=== PATIENT | female | born 1990 | race Caucasian/White ===

== ENCOUNTER → 2020-05-06 02:39 | Outpatient (CLI) | payer OTHER, SELFPAY ==
[2020-05-06 20:23] LABS: SARS-CoV-2 RNA PCR Negative
== END ==
PROVIDERS: PCP Nurse Practitioner Family; Visit Provider Internal Medicine Gastroenterology
DX: Z01.812 Encounter for preprocedural laboratory examination (principal); Z20.822 Contact with and (suspected) exposure to COVID-19
CPT/HCPCS: C9803; U0003; U0005

== ENCOUNTER 2020-05-09 01:47 | Day surgery (SDC) | payer OTHER, SELFPAY ==
[2020-04-25 10:07] VITALS: BMI 20.1
[2020-05-09 09:33] VITALS: BP 99/63; PULSE 95; RESP 16; TEMP 36.8; O2SAT 100
--- NOTE | 2020-05-09 09:40 | P.PNAN_ITS ---
Anes - Initial Pre Proc Eval Procedure: Operation Date: 05/09/20 10:45 Proposed Procedures p Esophagogastroduodenoscopy & Colonoscopy - Randall Ryan MD Date/Time: 05/09/20 09:40 Surgeon: Randall Ryan MD Pre Op Diagnosis: N&V, Weight Loss, Diarrhea Patient Data Age: 30 Gender: F Height: 5 ft 8 in Weight: 59.2 kg Last Vital Signs Temp 36.8 C 05/09/20 09:33 Pulse 95 05/09/20 09:33 Resp 16 05/09/20 09:33 BP 99/63 L 05/09/20 09:33 Pulse Ox 100 05/09/20 09:33 Allergies Allergy/AdvReac Type Severity Reaction Status Date / Time Sulfa (Sulfonamide Allergy Hives Verified 05/09/20 09:32 Antibiotics) Home Medications Medication Instructions Recorded Confirmed Type cholecalciferol (vitamin D3) 50 50 mcg PO DAILY 04/21/20 04/25/20 History mcg (2,000 unit) tablet dicyclomine 20 mg tablet 20 mg PO QID 04/21/20 04/25/20 History propranolol 40 mg tablet 40 mg PO Q12H 04/21/20 04/25/20 History sumatriptan succinate 50 mg tablet 50 mg PO PRN 04/21/20 04/25/20 History topiramate 200 mg tablet 200 mg PO BID tablet 04/21/20 04/25/20 History trazodone 100 mg tablet 100 mg PO QHS PRN 04/21/20 04/25/20 History Patient hx anesthesia problems: none Family hx anesthesia problems: none [facility] Past Medical History Medical History Diarrhea Nausea and vomiting Weight loss Social History Social History Smoking packs per day: 0.5 Smoking cigarettes per day: 10.0 Years smoked: 15 Smoking pack-years: 7.50 Smoking status: Current every day smoker Tobacco type: cigarettes Alcohol intake: never Substance use: current Substance use type: marijuana Other substance usage details: daily Living arrangements: with family Spiritual care concerns: No Anes - Eval Final PreProcedure Day of Procedure 03/30/21 09:40 Patient weight: normal Heart: regular rate and rhythm Lungs: decreased breath sounds Airway: Mallampati scale class II Neurological: alert and oriented Last oral intake: >/= 8 hours ASA classification: III Emergent: no Anesthetic plan: proceed Anesthesia type and monitoring: general GIVS and standard monitoring Informed Consent: The patient's anesthetic plan and its attendant risks and benefits were discussed with the patient/family/POA. Questions were solicited and answers provided to the satisfaction of the patient/family/POA.
[2020-05-09] MEDS: LACTATED RINGERS 1,000 ML 150 ML IV CONT (09:48)
--- NOTE | 2020-05-09 10:28 | PM.HPGS ---
History of Present Illness History of Present Illness Consent: Risks, benefits, and alternatives have been discussed and questions answered. Patient agrees to proceed with procedure. Chief complaint: N&V, Weight Loss, Diarrhea Narrative: Dionna Casanova is a 30 year old female who was had severe diarrhea. This began almost 1 year ago. Trials of therapy had minimal effect on her symptoms. She has diffuse nonlocalizing abdominal pain, often worse before a bowel movement. She has lost 40 lb in the past several months Review of Systems Review of Systems: All systems reviewed & are unremarkable except as noted in HPI and below PMFSH Past Medical History Medical History Diarrhea Nausea and vomiting Weight loss Social History Social History Smoking packs per day: 0.5 Smoking cigarettes per day: 10.0 Years smoked: 15 Smoking pack-years: 7.50 Smoking status: Current every day smoker Tobacco type: cigarettes Alcohol intake: never Substance use: current Substance use type: marijuana Other substance usage details: daily Living arrangements: with family Spiritual care concerns: No Meds Home Medications and Allergies Home Medications Medication Instructions Recorded Confirmed Type cholecalciferol (vitamin D3) 50 50 mcg PO DAILY 04/21/20 05/09/20 History mcg (2,000 unit) tablet dicyclomine 20 mg tablet 20 mg PO QID 04/21/20 05/09/20 History propranolol 40 mg tablet 40 mg PO Q12H 04/21/20 05/09/20 History sumatriptan succinate 50 mg tablet 50 mg PO PRN 04/21/20 05/09/20 History topiramate 200 mg tablet 200 mg PO BID tablet 04/21/20 05/09/20 History trazodone 100 mg tablet 100 mg PO QHS PRN 04/21/20 05/09/20 History Allergies Allergy/AdvReac Type Severity Reaction Status Date / Time Sulfa (Sulfonamide Allergy Hives Verified 05/09/20 09:32 Antibiotics) Vital Signs Vital Signs - 24 hr 05/09/20 09:33 Temperature 36.8 C Pulse Rate 95 Respiratory Rate 16 Blood Pressure 99/63 L Pulse Oximetry 100 Exam Const: General: alert Orientation/consciousness: patient oriented x3 Resp: Auscultation: clear to auscultation bilaterally Cardio: Rhythm: regular rhythm GI: GI Palp: Yes Soft to palpation and No Tenderness to palpation present (GI) Neuro: General: patient oriented x3 Assessment and Plan Assessment and plan (1) Diarrhea: Code(s): R19.7 - Diarrhea, unspecified Status: Acute Assessment and Plan: Colonoscopy with possible biopsy or polypectomy or cautery or injection of substances. (2) Weight loss: Code(s): R63.4 - Abnormal weight loss Status: Acute Assessment and Plan: EGD with possible biopsy or dilatation or cautery.
[2020-05-09] MEDS: SIMETHICONE ORAL SUSPENSION 20 MG/0.3 ML 30 ML BOTTLE 0.6 ML IRRIGATION (11:07)
[2020-05-09 11:18] VITALS: BP 98/64; PULSE 100; RESP 28; O2SAT 98
[2020-05-09 11:28] VITALS: BP 103/64; PULSE 73; RESP 18; O2SAT 98
[2020-05-09 11:38] VITALS: BP 109/64; PULSE 79; RESP 18; O2SAT 98
[2020-05-09 11:48] VITALS: BP 106/72; PULSE 72; RESP 18; O2SAT 98
== END 2020-05-09 12:06 | disposition home or self-care (01) ==
PROVIDERS: PCP Nurse Practitioner Family; Visit Provider Internal Medicine Gastroenterology
PROC: 0DJ08ZZ Inspection of Upper Intestinal Tract, Via Natural or Artificial Opening Endoscopic (ICD-10-PCS; CPT 43235; principal; 2020-05-09 10:45)
DX: K59.1 Functional diarrhea (principal); D12.2 Benign neoplasm of ascending colon; K44.9 Diaphragmatic hernia without obstruction or gangrene; K29.70 Gastritis, unspecified, without bleeding; R63.4 Abnormal weight loss; Z68.1 Body mass index [BMI] 19.9 or less, adult; R11.2 Nausea with vomiting, unspecified; F17.210 Nicotine dependence, cigarettes, uncomplicated; F12.90 Cannabis use, unspecified, uncomplicated
CPT/HCPCS: 45385; 45380; 43239; 87081; 88305; J2704; J7120

== ENCOUNTER 2020-06-15 07:05 | Outpatient (CLI) | payer OTHER, SELFPAY ==
--- NOTE | ~2020-06-15 | CT_ITS ---
EXAMINATION: CT abdomen pelvis w con INDICATION: Abnormal weight loss TECHNIQUE: Computed tomographic images of the abdomen and pelvis were obtained after the administrati on of 100 cc of Omnipaque 350 intravenous contrast. The dose-length product (DLP) was 219.02 mGy-cm. Automated exposure control and iterative reconstruction technique were employed. COMPARISON: None available FINDINGS: Minimal dependent atelectasis is present in the lung bases. The heart size is normal. Bilat eral breast implants are noted. The liver, spleen, pancreas, gallbladder, and adrenal glands are norm al. There is an 8 mm cyst of the left kidney. The right kidney is normal. No pathologically enlarged abdominal or pelvic lymph nodes are identified. There is no free intraperitoneal gas or evidence of b owel obstruction. IMPRESSION: 1. No CT correlate for the patient's symptoms. Reviewed, dictated and finalized at location A.
== END 2020-06-15 07:06 | disposition home or self-care (01) ==
PROVIDERS: PCP Nurse Practitioner Family; Visit Provider Internal Medicine Gastroenterology
DX: R63.4 Abnormal weight loss (principal)
CPT/HCPCS: 74177; Q9967

== ENCOUNTER → 2020-10-25 09:30 | Outpatient (CLI) | payer OTHER, SELFPAY ==
[2020-10-25 22:41] LABS: SARS-CoV-2 RNA PCR Negative
== END ==
PROVIDERS: PCP Nurse Practitioner Family; Visit Provider Nurse Practitioner Family
DX: Z20.822 Contact with and (suspected) exposure to COVID-19 (principal)
CPT/HCPCS: C9803; U0003; U0005

== ENCOUNTER 2022-02-25 10:21 | Outpatient (CLI) | payer OTHER, SELFPAY ==
--- NOTE | 2022-02-25 10:27 | ECG_ITS ---
Measurements Intervals [place] Rate: 68 P: 11 [place]: 142 QRS: 78 QRSD: 88 T: 64 QT: 363 QTc: 387 Interpretive Statements SINUS RHYTHM BASELINE ARTIFACT- I, III, AVL NORMAL ECG NO PREVIOUS ECG AVAILABLE FOR COMPARISON Electronically Signed On 02-25-2022 10:37:56 DISTRIBUTION COLLECTION OPERATOR by Gurjit Mason D.O.
== END 2022-02-25 10:22 | disposition home or self-care (01) ==
LOC: ANHSURGERY 10:24
PROVIDERS: PCP Nurse Practitioner Family; Visit Provider Surgery Plastic and Reconstructive Surgery
DX: Z01.810 Encounter for preprocedural cardiovascular examination (principal); R00.0 Tachycardia, unspecified; Z72.0 Tobacco use
CPT/HCPCS: 93005

== ENCOUNTER 2022-03-05 00:08 | Day surgery (SDC) | payer OTHER, SELFPAY ==
[2022-02-21 09:48] VITALS: BMI 21.2
--- NOTE | 2022-02-21 10:09 | SUR.PREOP ---
Report to the Outpatient Waiting Room, entrance under the green pavilion located off [facility], at time 0600 on date 03/05/2022. Planned Procedure Time: 0730. Time changes happen often and if your time is changed the preop area will call you the afternoon before. - You and your visitor will be asked to self-screen and do not enter if you have any COVID symptoms. - Only one visitor is requested with a max of two and NO children visitors are allowed at this time. - The patient visitor may be requested to leave or wait in car when not with patient due to distancing restrictions. - A mask is required within the hospital. Patients may have clear liquids (water, carbonated beverages, clear teas, apple juice) until 3 hours prior to surgery with a maximum of 20 ounces (0430). - No food from midnight until time of surgery - Infants may have breast milk until 4 hours before surgery, infant formula 6 hours prior to surgery. - Children will be allowed to drink immediately following surgery. If applicable, please bring a bottle or sippy cup to assist with drinking. Juice, water, soda, and popsicles are readily available. For infants on formula, please bring formula the day of surgery. Pacifiers are allowed. Take the following medications with a SIP of water the morning of surgery: Bentyl as needed, Imitrex as needed Medications to discontinue per physician N/A Please no make-up, nail czech, hairspray, perfume, deodorant, or body powder the day of surgery. No jewelry (including any body piercings) or valuables the day of surgery, leave them at home. Please take a shower or bath the night before, or the morning of, surgery with an antibacterial soap. Wear comfortable, loose fitting clothing. Children are encouraged to wear pajamas. - Jewelry must be removed prior to entering the operating room. Rings and piercings that are not removed may be cut off. - The hospital will not accept responsibility for valuables. - Please leave all valuables, including medications, at home the day of surgery. If you are going home after surgery, a licensed regional driver must drive you home. - NO public transportation without another adult if you receive anesthesia. - We recommend that an adult stay with you for 24 hours following discharge. - We also recommend that you do not drive, make important decision, drink alcoholic beverages, or take any drugs that were not prescribed by your health care provider for at least 24 hours after your discharge time. For Pediatric surgeries, we recommend two adults accompany the child home. Follow any additional instructions given to you from your surgeon. If you or anyone in your household have experienced Covid symptoms in the past week, please notify your surgeon or the nurse liaison at the phone number below for possible testing. Telephone instructions given to patient and asked if any additional questions and then verbalized understanding. Patient advised to call surgeon office or pre surgery nurse liaison [phone] if any additional questions.
[2022-03-05] VITALS (10 sets, daily range): BP systolic 103–135; BP diastolic 58–88; PULSE 65–120; RESP 12–17; TEMP 36.3–37.6; O2SAT 94–100
[2022-03-05] MEDS: LACTATED RINGERS 1,000 ML 30 ML IV CONT ×2 (06:30→11:08)
[2022-03-05 06:36] LABS: Urine Cotinine NEGATIVE
--- NOTE | 2022-03-05 06:40 | P.OP_ITS ---
Procedure Note - Detailed Date of Procedure 03/05/22 Pre-op Diagnosis Skin Laxity Post-op Diagnosis Same Procedure Performed Progressive tension abdominoplasty Surgeon Jason Marquez MD Anesthesia General Findings Tissue removed: 801 grams Description of Procedure They are here today for abdominoplasty. Previously and again today the risks, benefits, alternatives were discussed in extensive detail. I wanted them to be very realistic about the risks involved as well as expectations. We discussed aftercare and what to monitor for. I was very upfront about the risks of wound breakdown leading to loss of skin, open wounds, and need for additional proce dures with permanent abdominal deformity. We discussed DVT/PE risks and management. Made sure answered all of their questions to their satisfaction today and consent was obtained. They were marked in the preoperative holding area with their verification. The patient was taken to the operating room placed supine on the operating table. Anesthesia was provided by anesthesiology. A Brock catheter was started. They were prepped and draped in a standard sterile fashion. A surgical time-out was taken. I placed the patient in a flexed position to verify the upper and lower markings would reach. I then placed supine. A thorough abdominal examination was completed. Stab incisions were made and tumescent solution infiltrated. A 5mm liposuction basket cannula was utilized to provide discontinuous undermining. A 10 blade was used to make the upper incision. I continued dissection down to the level of fascia. Elevated just what was necessary for repair of the diastasis. I then again flexed the bed to verify the upper skin flap would reach the lower markings without tension. Once verified I placed her supine once again and a 10 blade used to make the lower incision. I elevated up to level the umbilicus and left the umbilicus intact on a well-vascularized stalk. The intervening tissue was removed. A 2 mm blunt cannula with 0.5% bupivicaine was injected deep to the fascia bilaterally. I plicated the diastasis recti using 0 PDO stratafix barbed suture. This was in 2 separate layers using 2 separate sutures as well. I also advanced the oblique musclesi using 0 PDO stratafix barbed suture. I repaired around the umbilicus leaving plenty of room for well-vascularized stalk of the umbilicus with 2-0 PDS. I also repaired lateral to the rectus using two layers of 0 PDO stratafix. The patient was flexed and starting from superior to inferior began plication using 2-0 Vicryl to obliterate all space in a standard progressive tension fashion. At the umbilicus I marked out the location of the skin and inset this with 3-0 Monocryl and 4-0 Vicryl. I continued the remainder of the plication using 2-0 Vicryl until I reached my lower planned scar line. I trimmed any excess skin of the upper flap making sure this was a tension-free closure. Minimal suction lipectomy based on S.A.F.E. technique was completed laterally to optimize shape. Lipoaspirate 30-40cc I then approximated using a 3 point suture with 2-0 Vicryl followed by 3-0 stratafix ,running subcuticular 4-0 Monocryl, and tissue glue. Fluffs and an abdominal binder were placed. The patient was transferred to the bed in a flexed position. Awoken and taken to the PACU without difficulty. All instrument and sponge counts were correct at the end of the case. Estimated Blood Loss 75 Drains No Packing No Pathology None sent Complications No immediate complications Condition Stable Disposition PACU
--- NOTE | 2022-03-05 06:40 | WPDHPUPDATE1 ---
History and Physical Update Update Date/Time: 03/05/22 06:40 History and Physical has been reviewed, including an updated exam of the patient. There are NO changes in the patient's condition. Risks, benefits, and alternatives have been discussed and questions answered. Patient agrees to proceed with procedure.
--- NOTE | 2022-03-05 07:33 | WPDANESEPPF ---
Anes - Initial Pre Proc Eval Procedure: Operation Date: 03/05/22 08:15 Proposed Procedures p Abdominoplasty - Jason Marquez MD Date/Time: 03/05/22 07:33 Surgeon: Jason Marquez MD Pre Op Diagnosis: Skin Laxity Patient Data Age: 32 Gender: F Height: 1.7 m Weight: 61.36 kg Allergies Allergy/AdvReac Type Severity Reaction Status Date / Time Sulfa (Sulfonamide Allergy Unknown Hives Verified 03/05/22 07:28 Antibiotics) Home Medications Medication Instructions Recorded Confirmed Type dicyclomine 20 mg tablet 20 mg PO QID PRN IBS symptoms 04/21/20 03/05/22 History sumatriptan succinate 50 mg tablet 50 mg PO PRN lico 04/21/20 03/05/22 History (Imitrex) topiramate 200 mg tablet (Topamax) 200 mg PO DAILY 04/21/20 03/05/22 History trazodone 100 mg tablet 100 mg PO QHS PRN Sleep 04/21/20 03/05/22 History zolpidem [Ambien] See Rx Instructions .Route .COMPLEX 10/08/21 03/05/22 History erenumab-aooe 70 mg/mL See Rx Instructions .Route .COMPLEX 02/21/22 03/05/22 History subcutaneous auto-injector (Aimovig Autoinjector) Laboratory Tests 03/05/22 06:15 Cotinine Negative Patient hx anesthesia problems: none Family hx anesthesia problems: none Results Review: All pre-operative results and documents have been reviewed as part of the pre-operative evaluation. [facility] Past Medical History Medical History (Updated 10/08/21 @ 11:49 by Paige Guzman) Diarrhea Nausea and vomiting Weight loss Surgical History Surgical History (Updated 10/08/21 @ 10:51 by Paige Guzman) Hx of total knee replacement Family History Family History (Updated 10/08/21 @ 10:52 by Paige Gumzan) Father Heart attack Lung cancer Diabetes mellitus Mother Arthritis, rheumatoid Diabetes mellitus DVT (deep venous thrombosis) Social History Social History (Updated 10/08/21 @ 10:53 by Paige Guzman) Smoking packs per day: 1.5 Smoking cigarettes per day: 30.0 Years smoked: 15 Smoking pack-years: 22.50 Smoking status: Former smoker Tobacco type: cigarettes Smoking end date: 01/19/22 Alcohol intake: current Drinks per week: 2 Substance use: current Substance use type: marijuana Other substance usage details: daily Last use: 02/20/2022 Living arrangements: with family Spiritual care concerns: No Anes - Eval Final PreProcedure Day of Procedure 03/05/22 07:33 Patient weight: normal Heart: regular rate and rhythm Lungs: clear to auscultation Airway: Mallampati scale class II Neurological: alert and oriented Last oral intake: >/= 8 hours ASA classification: II Emergent: no Anesthetic plan: proceed Anesthesia type and monitoring: general ETT and standard monitoring Results Review: All pre-operative results and documents have been reviewed as part of the pre-operative evaluation. Informed Consent: The patient's anesthetic plan and its attendant risks and benefits were discussed with the patient/family/POA. Questions were solicited and answers provided to the satisfaction of the patient/family/POA.
[2022-03-05] MEDS: TRANEXAMIC ACID 1,000MG/ISO100 1,000 MG/100 ML BAG 200 MG IVPB (08:25)
[2022-03-05] MEDS: BUPIVACAINE/EPINEPHRINE 0.5% 30 ML VIAL 60 ML INFILTRATE (08:27)
[2022-03-05] MEDS: LACTATED RINGERS IRRIG 1,000 ML, LIDOCAINE HCL 1% LOCAL INJ 50 ML, EPINEPHrine HCL INJ ... INFILTRATE (08:27)
[2022-03-05] MEDS: ceFAZolin 2 GM/D5W 50 ML 2 GM/50 ML BAG IVPB (08:35)
--- NOTE | 2022-03-05 11:23 | SUR.PHASEI ---
1123: Simple mask removed.
[2022-03-05] MEDS: fentaNYL CITRATE INJ (*CRX) 100 MCG/2 ML VIAL 25 MCG IV PUSH ×8 (11:29→12:31)
[2022-03-05] MEDS: KETOROLAC 15 MG/ML VIAL (*BKC) IV PUSH ×2 (13:12→23:08)
[2022-03-05] MEDS: LACTATED RINGERS 1,000 ML 125 ML IV CONT (13:12)
[2022-03-05] MEDS: carisoprodoL (*CRX) 350 MG TABLET PO ×3 (13:12→23:00)
--- NOTE | 2022-03-05 13:27 | OBPPTRN ---
1234 Patient transferred to post room #286 via bed. Support person present. Oriented to unit, room, information board, admission packet and security measures. Patient verbalizes understanding.
[2022-03-05] MEDS: ENOXAPARIN 40 MG/0.4 ML SYRINGE SUB-Q (18:40)
[2022-03-05] MEDS: oxyCODONE/ACETAMINOPHEN (*CRX) 5-325 MG TABLET PO ×2 (19:45→23:00)
[2022-03-05] MEDS: TOPIRAMATE 100 MG TABLET 200 MG PO (21:05)
[2022-03-05] MEDS: DOCUSATE SODIUM 100 MG CAPSULE PO (21:05)
[2022-03-06] MEDS: oxyCODONE/ACETAMINOPHEN (*CRX) 5-325 MG TABLET PO ×2 (02:47→05:48)
[2022-03-06 05:11] VITALS: BP 122/76; PULSE 67; RESP 16; TEMP 36.9; O2SAT 100
[2022-03-06] MEDS: carisoprodoL (*CRX) 350 MG TABLET PO (05:48)
[2022-03-06] MEDS: KETOROLAC 15 MG/ML VIAL (*BKC) IV PUSH (05:48)
--- NOTE | 2022-03-06 07:21 | WPDPN ---
Progress Note: A&P Assessment and Plan (1) Skin laxity: Code(s): L57.4 - Cutis laxa senilis Status: Acute Assessment and Plan: She is doing very well after progressive tension abdominoplasty. Will discharge home. Follow-up. She has a full list of instructions. They understand what monitor for. We discussed what is an emergency and when to proceed to the ER/dial 911. Call with any other questions or concerns. They voiced a clear understanding. I will see her back. (2) Nicotine use: Code(s): Z72.0 - Tobacco use Status: Acute Assessment and Plan: She understands the critical importance of no nicotine use. Subjective Date/time seen: 03/06/22 07:21 Interval history: Doing very well after progressive tension abdominoplasty. Ambulating. Pain controlled. No fevers or chills. No chest pain. No calf tenderness. Review of Systems Review of Systems: All systems reviewed & are unremarkable except as noted in HPI and below Exam Narrative: Alert oriented no obvious distress Respiratory unlabored Abdomen soft. No signs of infection. No hematoma. No seroma. Good color and capillary refill. No calf tenderness. Negative Homans. Objective Data Vital Signs Vital Signs: Vital Signs - 24 hr 03/05/22 11:08 03/05/22 11:20 03/05/22 11:35 Temperature 37.1 C Pulse Rate 120 H 95 87 Respiratory Rate 14 13 12 Blood Pressure 135/85 125/82 122/84 Pulse Oximetry 100 100 94 Oxygen Delivery Simple Face Mask Simple Face Mask Room Air Oxygen Flow Rate 6 6 03/05/22 11:50 03/05/22 12:05 03/05/22 12:20 Temperature Pulse Rate 98 92 83 Respiratory Rate 17 15 13 Blood Pressure 122/79 124/88 119/81 Pulse Oximetry 98 96 96 Oxygen Delivery Room Air Room Air Room Air Oxygen Flow Rate 03/05/22 16:53 03/05/22 18:40 03/05/22 12:34 Temperature 37.6 C 37.0 C Pulse Rate 71 81 Respiratory Rate 16 16 Blood Pressure 103/64 108/66 Pulse Oximetry 100 Oxygen Delivery Room Air Oxygen Flow Rate 03/05/22 23:00 03/06/22 05:11 Temperature 36.3 C L 36.9 C Pulse Rate 65 67 Respiratory Rate 16 16 Blood Pressure 111/58 L 122/76 Pulse Oximetry 100 100 Oxygen Delivery Oxygen Flow Rate Intake/Output Intake/Output: Intake & Output 03/03/22 03/04/22 03/05/22 03/06/22 23:59 23:59 23:59 23:59 Intake Total 4036 700 Output Total 4115 1375 Balance -79 -675 Meds/Results Medications: Active Medications Generic Name Dose Route Start Last Admin Trade Name Freq PRN Reason Stop Dose Admin Carisoprodol 350 mg 03/05/22 12:00 03/06/22 05:48 Carisoprodol (*Crx) 350 Mg Tablet PO 350 mg Q6HR JOSY Administration Diazepam 5 mg 03/05/22 11:05 Diazepam (*Crx) 5 Mg Tablet PO TID PRN Anxiety Dicyclomine HCl 20 mg 03/05/22 12:32 Dicyclomine Hcl 10 Mg Capsule PO QID PRN IBS symptoms Docusate Sodium 100 mg 03/05/22 21:00 03/05/22 21:05 Docusate Sodium 100 Mg Capsule PO 100 mg Q12HR [facility] Administration Enoxaparin Sodium 40 mg 03/05/22 18:00 03/05/22 18:40 Enoxaparin 40 Mg/0.4 Ml Syringe SUB-Q 40 mg DAILY@1800 [facility] Administration Ketorolac Tromethamine 15 mg 03/05/22 11:05 03/06/22 05:48 Ketorolac 15 Mg/Ml Vial (*Bkc) IV PUSH 15 mg Q6H PRN Administration Pain Rated 4-6 Morphine Sulfate 2 mg 03/05/22 11:05 Morphine Sulfate (*Crx) 2 Mg/Ml Inj IV PUSH Q2H PRN SEVERE PAIN Ondansetron HCl 4 mg 03/05/22 11:05 Ondansetron Inj 4 Mg/2 Ml Vial IV PUSH Q6H PRN Nausea Oxycodone/Acetaminophen 1 - 2 tablet 03/05/22 11:05 03/06/22 05:48 Oxycodone/Acetaminophen (*Crx) 5-325 Mg Tablet PO 1 tablet Q6H PRN Administration SEVERE PAIN Sumatriptan Succinate 50 mg 03/05/22 12:32 Sumatriptan Succinate 25 Mg Tablet PO PRN PRN Migraine Headache Topiramate 200 mg 03/05/22 21:00 03/05/22 21:05 Topiramate 100 Mg Tablet PO 200 mg HS S
--- NOTE | 2022-03-06 07:24 | P.DS_ITS ---
DS: Admitting Diagnosis Discharge Date 03/06/2022 Admitting Diagnosis skin laxity tobacco use DS: Discharge Diagnosis Discharge Diagnosis (1) Skin laxity: Code(s): L57.4 - Cutis laxa senilis Status: Acute (2) Nicotine use: Code(s): Z72.0 - Tobacco use Status: Acute DS: Summary Hospital Course Hospital Course: She underwent progressive tension abdominoplasty. Postoperatively has done well. Pain controlled. Ambulating. Tolerating diet. Will discharge home. Time spent discussing smoking cessation with patient: more than 10 minutes Time Spent with Patient Time attestation: Total time spent providing and/or coordinating discharge services: Exam Narrative: Alert oriented no obvious distress Respiratory unlabored Abdomen soft. No signs of infection. No hematoma. No seroma. Good color and capillary refill. No calf tenderness. Negative Homans. Discharge Plan Discharge Patient Disposition: Home, Self-Care Discharge Instructions: POST OPERATIVE DISCHARGE INSTRUCTIONS JASON MARQUEZ M.D. LOCATED [facility]IN [facility] [address] [place] [address] * No driving for 24 hours after anesthesia and while you are taking pain medication. * Take all prescribed medication as directed * Diet as tolerated. * No lifting or activity that raises blood pressure for 48 hours. * Regular walking / ambulation. * May shower 24 hours after surgery. Once you shower do not take pain medication before showering as the combination of medication and heat may cause you to feel dizzy or pass out. * No pools or tubs for 2 weeks. * Slowly stand up straight as tolerated. * No straining or lifting more than 20 pounds. * If no bowel movement within 24 hours may use laxative. * Call with any questions or concerns. * Dressing Care: Continue abdominal binder / foam 23 hours per day. If you have any questions or concerns, please call the office . If it is after hours you will be directed to the formulation scientist exchange. Shortness of breath, chest pain, or other medical emergency dial 911 / proceed to the Emergency Room. Stand Alone Forms: General Discharge Instructions Follow-up/Referrals: Jason Marquez MD [Physician] - 1 Week Discharge Medications: Continued topiramate [Topamax] 200 mg tablet 200 mg PO DAILY Rx Instructions: Take one tablet at HS. trazodone 100 mg tablet 100 mg PO QHS PRN (Reason: Sleep) Rx Instructions: Patient takes 2 tablets at HS. sumatriptan succinate [Imitrex] 50 mg tablet 50 mg PO PRN dicyclomine 20 mg tablet 20 mg PO QID PRN (Reason: IBS symptoms) zolpidem [Ambien] See Rx Instructions .ROUTE .COMPLEX Rx Instructions: Takes 10MG tablet PRN at HS. Aimovig Autoinjector 70 mg/mL auto-injector See Rx Instructions .ROUTE .COMPLEX Rx Instructions: 1 injection every month on the third.
[2022-03-06 07:30] VITALS: BP 107/65; PULSE 84; RESP 16; TEMP 37.3; O2SAT 100
--- NOTE | 2022-03-06 08:02 | WPDANESPN ---
Anes - Prog Note Post-Op Date/Time: 03/06/22 08:02 Cardiovascular status: normal Respiratory status: normal Airway patency: baseline Mental status: baseline Post-Op hydration status: normal Vital Signs: Last Vital Signs Temp 98.4 F 03/06/22 05:11 Pulse 67 03/06/22 05:11 Resp 16 03/06/22 05:11 BP 122/76 03/06/22 05:11 Pulse Ox 100 03/06/22 05:11 O2 Del Method Room Air 03/05/22 12:34 O2 Flow Rate 6 03/05/22 11:20 Pain Score (VAS): 7-8 I/O: Intake & Output 03/05/22 03/06/22 03/06/22 23:59 07:59 15:59 Intake Total 2150 700 Output Total 8509 7012 Balance -3575 -293 Post-procedural complaints: none Patient Feedback: Patient satisfied with anesthetic care.
== END 2022-03-06 08:16 | disposition home or self-care (01) ==
LOC: ANHSURGERY 12:05 → ANHOB2 12:42
PROVIDERS: PCP Nurse Practitioner Family; Visit Provider Surgery Plastic and Reconstructive Surgery
PROC: (CPT 15830; principal; 2022-03-05 08:15)
DX: Z41.1 Encounter for cosmetic surgery (principal); L57.4 Cutis laxa senilis; Z87.891 Personal history of nicotine dependence; F12.90 Cannabis use, unspecified, uncomplicated
CPT/HCPCS: 15830; 15847; 80307; 99199; A9270; J0171; J0690; J1100; J1170; J1650; J1885; J2250; J2405; J2704; J3010; J7120

== ENCOUNTER 2022-07-16 16:54 | Emergency (ER) | payer OTHER, SELFPAY ==
--- NOTE | 2022-07-16 16:59 | ED.SKABFB ---
HPI - Skin/Abscess/Foreign Bdy General Chief complaint: Skin/Abscess/Foreign Body Stated complaint: abscess Time Seen by Provider: 07/16/22 17:00 Source: patient Mode of arrival: ambulatory Limitations: no limitations History of Present Illness HPI narrative: patient is a 32-year-old female that presents with wound to right labia majora next to vaginal opening. Patient states she went camping this weekend and noticed a bump yesterday. significant other help drain area last night, but states today it is filled again and larger than it was. Patient states the scratch next to it now appears white and Pussy but is not currently draining. Denies any difficulty with bowel movements. Is currently on her Menstrual cycle. Denies any fever, chills but does feel fatigued. Has not taken anything for symptoms or used any topical ointment Related Data Home Medications Medication Instructions Recorded Confirmed sumatriptan succinate 50 mg tablet 50 mg PO PRN PRN Migraine Headache 04/21/20 07/16/22 (Imitrex) topiramate 200 mg tablet (Topamax) 200 mg PO BID 04/21/20 07/16/22 trazodone 100 mg tablet 200 mg PO QHS PRN Sleep 04/21/20 07/16/22 erenumab-aooe 70 mg/mL See Rx Instructions .Route .COMPLEX 02/21/22 07/16/22 subcutaneous auto-injector (Aimovig Autoinjector) flibanserin 100 mg tablet (Addyi) 100 mg PO DAILY 07/16/22 07/16/22 zolpidem 10 mg tablet 10 mg PO DAILY 07/16/22 07/16/22 Allergies Allergy/AdvReac Type Severity Reaction Status Date / Time Sulfa (Sulfonamide AdvReac Mild Hives Verified 07/16/22 16:56 Antibiotics) Review of Systems Review of Systems: All systems reviewed & are unremarkable except as noted in HPI and below Constitutional: Constitutional: Denies body ache(s), Denies chills, Reports fatigue, Denies fever(s), Denies headache(s), Denies malaise and Denies weakness Eyes: Eyes: Denies blurry vision, Denies irritation and Denies loss of vision ENT: Denies otalgia, Denies headache(s), Denies nasal discharge, Denies sinus pain and Denies sore throat Cardiovascular: Cardiovascular: Denies chest pain, Denies irregular heart rhythm and Denies dyspnea Respiratory: Respiratory: Denies dyspnea Gastrointestinal: Gastrointestinal: Denies abdominal pain, Denies melena, Denies hematochezia, Denies diarrhea, Denies nausea and Denies vomiting Musculoskeletal: Musculoskeletal: Denies back pain, Denies myalgias and Denies arthralgias Integumentary/Breasts: Skin/Breast: Denies pruritus, Denies rash and Reports sores Neurologic: Denies headache(s), Denies loss of vision and Denies weakness Psychiatric: Psychiatric: Reports no additional psychiatric complaints Endocrine: Endocrine: Denies fatigue [facility] Past Medical History Medical History (Updated 07/16/22 @ 17:30 by Kathleen Donohue, VICKIE) Diarrhea Nausea and vomiting Weight loss Surgical History Surgical History (Updated 10/08/21 @ 10:51 by Paige Guzman) Hx of total knee replacement Family History Family History (Updated 10/08/21 @ 10:52 by Paige Guzman) Father Heart attack Lung cancer Diabetes mellitus Mother Arthritis, rheumatoid Diabetes mellitus DVT (deep venous thrombosis) Social History Social History (Updated 10/08/21 @ 10:53 by Paige Guzman) Smoking packs per day: 1.5 Smoking cigarettes per day: 30.0 Years smoked: 15 Smoking pack-years: 22.50 Smoking status: Former smoker Tobacco type: cigarettes Smoking end date: 01/19/22 Alcohol intake: current Drinks per week: 2 Substance use: current Substance use type: marijuana Other substance usage details: daily Last use: 02/20/2022 Living arrangements: with family Spiritual care concerns: No Comments At time of signature, agree with nursing past medical, surgical, social and family history. There is no relevant family history pertinent to the presenting complaint. Exam Const: General: cooperative, healthy appearing, co
[2022-07-16 17:00] VITALS: BP 127/83; PULSE 90; RESP 18; TEMP 36.8; O2SAT 100
== END 2022-07-16 18:09 | disposition home or self-care (01) ==
PROVIDERS: Emergency Provider Nurse Practitioner Family; PCP Nurse Practitioner Family
DX: N76.4 Abscess of vulva (principal); Z87.891 Personal history of nicotine dependence
CPT/HCPCS: 99213; G0463

== ENCOUNTER 2022-07-18 07:29 | Outpatient (CLI) | payer OTHER, SELFPAY ==
--- NOTE | ~2022-07-18 | MR_ITS ---
MRI of the brain Clinical History: Chronic migraine Technique: Axial and sagittal T1-weighted images were acquired. These were followed by axial T2-weigh jordon, diffusion weighted, gradient, and FLAIR images. COMPARISON: 08/06/2013 Findings: No signal abnormality seen in the brain parenchyma. No acute infarct, intracranial hemorrha ge, or mass lesion. Ventricles and subarachnoid spaces are unremarkable. Orbits are unremarkable. Paranasal sinuses and m astoid air cells are clear. Major intracranial flow voids appear intact. Sagittal midline structures are intact. IMPRESSION: No significant abnormality seen. Reviewed, dictated and finalized at location M.
== END 2022-07-18 07:30 | disposition home or self-care (01) ==
LOC: ANHIMG 07:36
PROVIDERS: PCP Nurse Practitioner Family
DX: G43.709 Chronic migraine without aura, not intractable, without status migrainosus (principal)
CPT/HCPCS: 70551

== ENCOUNTER 2022-08-05 15:26 | Outpatient (CLI) | payer OTHER, SELFPAY ==
[2022-08-05 15:42] LABS: Basophils Absolute Auto 0.1 K/mm3 (0.0-0.1); Basophils Percent Auto 0.5 % (0.2-1.2); Eosinophils Absolute Auto 0.1 K/mm3 (0-0.3); Eosinophils Percent Auto 0.9 % (0-4.4); Hematocrit 44.4 % (37.0-47.0); Hemoglobin 14.9 g/dL (12.0-15.0); Immature Granulocyte Absolute 0.04 K/mm3 (0.00-0.031); Immature Granulocyte Percent A 0.4 % (0-0.5); Lymphocytes Absolute Auto 2.26 K/mm3 (0.9-3.2); Lymphocytes Percent Auto 21.8 % (18.3-44.2); Mean Corpuscular HGB Conc 33.6 g/dl (32-36); Mean Corpuscular Hemoglobin 31.8 pg (26-34); Mean Corpuscular Volume 94.9 fl (80-100); Mean Platelet Volume 8.8 fl (7.4-10.4); Monocytes Absolute Auto 0.7 K/mm3 (0.1-0.6); Monocytes Percent Auto 6.7 % (2.6-8.5); Neutrophils Absolute Auto 7.2 K/mm3 (1.3-6.7); Neutrophils Percent Auto 69.7 % (45.5-73.1); Platelet Count Result 397 k/mm3 (150-375); Red Blood Count 4.68 M/mm3 (4.2-5.4); White Blood Count 10.4 K/mm3 (4.5-10.0)
[2022-08-05 16:46] LABS: Erythrocyte Sedimentation Rate 5 mm/hr (0-20)
[2022-08-05 17:06] LABS: Alanine Aminotransferase 18 U/L (6-35); Albumin Level 4.8 g/dL (3.5-5.1); Alkaline Phosphatase 58 U/L (38-126); Anion Gap 5 mmol/L (8-16); Aspartate Amino Transferase 37 U/L (14-36); Bilirubin,Total 0.4 mg/dL (0.2-1.3); Blood Urea Nitrogen 8 mg/dL (7-17); CRP < 0.5 mg/dL (<1.0); Calcium 9.5 mg/dL (8.4-10.2); Carbon Dioxide 26 mmol/L (22-30); Chloride 108 mmol/L (98-107); Estimated Glomerular Filt Rate > 60; Glucose 88 mg/dL (65-110); Lactate Dehydrogenase 183 U/L (120-246); Potassium 3.9 mmol/L (3.4-5.0); Sodium 139 mmol/L (137-145)
[2022-08-08 15:01] LABS: Erythropoietin (EPO) 4.3 mIU/mL (2.6-18.5)
== END 2022-08-05 15:27 | disposition home or self-care (01) ==
LOC: ANHLAB 15:28
PROVIDERS: PCP Nurse Practitioner Family; Visit Provider Internal Medicine Hematology & Oncology
DX: D72.829 Elevated white blood cell count, unspecified (principal); D75.1 Secondary polycythemia
CPT/HCPCS: 36415; 80053; 82668; 83615; 85025; 85652; 86140; 88184

== ENCOUNTER 2022-08-14 11:58 | Outpatient (CLI) | payer OTHER, SELFPAY ==
--- NOTE | 2022-08-14 | ECHO_ITS ---
Patient Info Name: Dionna Casanova Age: 32 years : 1990 Gender: Female Ht: 68 in Wt: 130 lbs BSA: 1.68 m2 HR: 87 bpm BP: 124 / 87 mmHg Heart Rhythm: Sinus Rhythm Technical Quality: Good Exam Date: 08/14/2022 12:45 PM Exam Location: [facility] Patient Status: Outpatient Admit Date: 08/14/2022 Staff Ordering Physician: JameelRakan MD Assistant Accounting Manager: Loretta Mann RDCS Attending Provider: Jameel, Rakan Reyna MD Referring Physician: Jameel GONZALEZ; Exam Type: CA echo doppler color flow Study Info Indications - mitral valve prolapse Complete two-dimensional, color flow and Doppler transthoracic echocardiogram is performed. Summary 1. Complete two-dimensional, color flow and Doppler transthoracic echocardiogram is performed. 2. Left ventricular chamber dimension is normal. 3. Left ventricular systolic function is normal, estimated at 60-65%. 4. The left ventricular diastolic function is normal. 5. E/e' 7 is not elevated. 6. There is trace tricuspid valve regurgitation. Left Ventricle E/e' 7 is not elevated. Left ventricular chamber dimension is normal. Left ventricular systolic function is normal, estimated at 60-65%. The left ventricular diastolic function is normal. Right Ventricle Right ventricular systolic function is normal and with normal TAPSE 1.8 cm. Right ventricular chamber dimension is normal. Left Atria Left atrial chamber dimension is normal. Right Atria Right atrial chamber dimension is normal. Aortic Valve The aortic valve is trileaflet. There is no aortic valve stenosis. There is no aortic valve regurgitation. Pulmonic Valve There is no pulmonic regurgitation. Mitral Valve There is no mitral valve stenosis. There is no mitral valve regurgitation. Tricuspid Valve RVSP is not calculated due to an inadequate TR jet. There is trace tricuspid valve regurgitation. Pericardium/Pleural There is no pericardial effusion. Inferior Vena Cava Normal inferior vena cava with >50% collapse upon inspiration consistent with normal right atrial pressure, 5 mmHg. Aorta The aortic root size at the sinus of Valsalva is normal. Left Ventricular Outflow Tract Name Value Normal LVOT 2D LVOT Diameter 2.0 cm LVOT Doppler LVOT Peak Gradient 3 mmHg LVOT Mean Gradient 2 mmHg LVOT VTI 15 cm LVOT VTI/AV VTI Ratio 0.8 LVOT Stroke Volume 49 ml LVOT CO 3.8 l/min LVOT CI 2.3 l/min/m2 Pulmonic Valve Name Value Normal RVOT Doppler RVOT Peak Gradient 2 mmHg PV Doppler PV Peak Gradient 5 mmHg Mitral Valve Name
--- NOTE | 2022-08-14 12:45 | PCCARD ---
Patient was called by [employer] a couple of times and could not leave a message. They also tried the doctors office on August 12 and no answer. they left a message on our phone in cardiology but was not taken off of the machine until fri. Patient arrived at the hospital and was registered and was brought to the cardiology department. I tried to explain the situation to her and her but the became upset and left but did return. the patient started crying and still wanted test so I told her that I would see what I could tried office no answer. Called [employer] [id number] and was informed that if they had the test and insurance denied they would be liable. they both agreed to go ahead with the test knowing they might be liable for the procedure cost. darek
== END 2022-08-14 11:59 | disposition home or self-care (01) ==
LOC: ANHCARD 11:59
PROVIDERS: PCP Nurse Practitioner Family; Visit Provider Internal Medicine Rheumatology
DX: I34.1 Nonrheumatic mitral (valve) prolapse (principal)
CPT/HCPCS: 93306

== ENCOUNTER 2023-01-31 14:33 | Outpatient (CLI) | payer OTHER, SELFPAY ==
--- NOTE | ~2023-01-31 | US_ITS ---
EXAMINATION: US pelvic complete w TV DATE: 01/31/2023 15:10 INDICATION: Left lower quadrant pain Comparison:No prior studies for comparison. TECHNIQUE: Multiple transabdominal and endovaginal sonographic images of the pelvis performed. FINDINGS: The uterus measures 6 x 3.3 x 3.9 cm. There is a 2 cm uterine fibroid. The endometrial comp kavita measures 3 mm. The right ovary measures 2.8 x 1.4 x 2.4 cm and the left ovary measures 2.5 x 1.5 x 2.4 cm. There ar e small follicles in each ovary. Normal doppler signal in both ovaries. There is no free fluid in the pelvis. There are no abnormal masses seen on either side. IMPRESSION: 1. Uterine fibroid measuring 2 cm. Reviewed, dictated and finalized at location A. [employer]
== END 2023-01-31 14:34 | disposition home or self-care (01) ==
PROVIDERS: PCP Nurse Practitioner Family; Visit Provider Nurse Practitioner Family
DX: R10.32 Left lower quadrant pain (principal); D25.9 Leiomyoma of uterus, unspecified
CPT/HCPCS: 76830; 76856

== ENCOUNTER 2023-05-21 08:29 | Outpatient (CLI) | payer OTHER, SELFPAY | END 2023-05-21 08:30 | disposition home or self-care (01) | LOC: ANHSURGERY 08:32 | PROVIDERS: PCP Nurse Practitioner Family; Visit Provider Obstetrics & Gynecology | DX: Z01.818 Encounter for other preprocedural examination (principal); N93.9 Abnormal uterine and vaginal bleeding, unspecified | CPT/HCPCS: 36415; 86850; 86900; 86901 ==

== ENCOUNTER 2023-05-26 00:51 | Day surgery (SDC) | payer OTHER, SELFPAY ==
[2023-05-15 10:11] VITALS: BMI 19.0
--- NOTE | 2023-05-15 10:24 | SUR.PREOP ---
Report to the Outpatient Waiting Room, entrance under the green pavilion located off [facility], at time 0600 on date 05/26/2023. Planned Procedure Time: 0730. Time changes happen often and if your time is changed the preop area will call you the afternoon before. - You and your visitor will be asked to self-screen and do not enter if you have any COVID symptoms. - A mask is optional within the hospital at this time. Patients may have clear liquids (water, carbonated beverages, clear teas, apple juice) until 3 hours prior to surgery with a maximum of 20 ounces. - No food from midnight until time of surgery Take the following medications with a SIP of water the morning of surgery: clonazepam, levetiracetam, topiramate, fludrocortisone DO NOT STOP ANY OF YOUR OTHER PRESCRIPTION MEDICATIONS PRIOR TO SURGERY ?EXCEPT THE FOLLOWING Medications to discontinue per physician Vitamins/ Supplements Date to take last dose 05/23/2023 for Vitamin and Supplements Please no make-up, nail occitan, hairspray, perfume, deodorant, or body powder the day of surgery. No jewelry (including any body piercings) or valuables the day of surgery, leave them at home. Please take a shower or bath the night before, or the morning of, surgery with an antibacterial soap. Wear comfortable, loose fitting clothing. Children are encouraged to wear pajamas. - Jewelry must be removed prior to entering the operating room. Rings and piercings that are not removed may be cut off. - The hospital will not accept responsibility for valuables. - Please leave all valuables, including medications, at home the day of surgery. If you are going home after surgery, a licensed fence post driver must drive you home. - NO public transportation without another adult if you receive anesthesia. - We recommend that an adult stay with you for 24 hours following discharge. - We also recommend that you do not drive, make important decision, drink alcoholic beverages, or take any drugs that were not prescribed by your health care provider for at least 24 hours after your discharge time. Follow any additional instructions given to you from your surgeon. If you or anyone in your household have experienced Covid symptoms in the past week, please notify your surgeon or the nurse liaison at the phone number below for possible testing. Telephone instructions given to Dionna Casanova and asked if any additional questions and then verbalized understanding. Patient advised to call surgeon office or pre surgery nurse liaison [phone] if any additional questions.
--- NOTE | 2023-05-25 19:05 | PM.IMHP ---
H&P: HPI History of Present Illness Date/Time: 05/25/23 19:05 Chief Complaint: pelvic pain and AUB Narrative: Dionna is a 33yo G0, who presents for surgery due to chronic pelvic pain and AUB. Her PCP ordered a [employer] US due to her chronic pelvic pain. A 2cm ant/fundal intramural fibroid was noted. She reports her periods are very heavy periods; has to change her pad every couple of hours; passing half dollar sized clots. She reports that during her periods, she usually does not get out of bed because of the depression and severe pains that radiate down her legs. But when she's not on her period, she still has a constant, achy/cramping pain that's constantly present. She has taken depo and other BC in the past but it severely affects her mood and she has migraines; so she cannot be on estrogen. She reports that her periods are so heavy, her neurologist thinks that she's getting hypotensive and then has seizures due to the hypotension. She does not desire children; had a vasectomy 17 years ago. She has pain with intercourse too. She reports a h/o hemorrhagic cyst with large volume hemoperitoneum and possible endometriosis. She does have a h/o IBS-D. Had a normal EMB; pap showed HPV, but colpo was negative. Review of Systems Constitutional: Constitutional: Denies chills, Denies fever(s) and Denies headache(s) Eyes: Eyes: Denies change in vision ENT: Reports dizziness and Reports headache(s) Cardiovascular: Cardiovascular: Denies chest pain and Denies dyspnea Respiratory: Respiratory: Denies cough and Denies dyspnea Gastrointestinal: Gastrointestinal: Denies abdominal pain and Denies change in stool character Genitourinary: Genitourinary: Denies abnormal menses, Reports abnormal vaginal bleeding, Reports menorrhagia, Reports dyspareunia, Reports dysmenorrhea, Reports pelvic pain, Denies vaginal discharge, Denies vaginal odor and Denies vaginal pruritus Neurologic: Denies dizziness and Denies headache(s) Psychiatric: Psychiatric: Denies anxiety and Denies depression [facility] Past Medical History Medical History (Updated 05/22/23 @ 08:09 by Grace Guillory APRN) Body aches Diarrhea Episodic migraine GERD (gastroesophageal reflux disease) History of PSVT (paroxysmal supraventricular tachycardia) IBS (irritable bowel syndrome) Insomnia Irritable bowel syndrome with constipation Nausea and vomiting Orthostatic hypertension Orthostatic intolerance POTS (postural orthostatic tachycardia syndrome) Seizures SVT (supraventricular tachycardia) Weight loss Surgical History Surgical History H/O abdominoplasty Hx of breast augmentation Hx of total knee replacement reconstruction on both knees Family History Family History Father Heart attack Lung cancer Diabetes mellitus Mother Arthritis, rheumatoid Diabetes mellitus DVT (deep venous thrombosis) Endometriosis Grandparent Cerebrovascular accident Social History Social History Smoking packs per day: 1 Smoking cigarettes per day: 20.0 Years smoked: 18 Smoking pack-years: 18.00 Smoking status: Current every day smoker Tobacco type: cigarettes Smoking end date: 01/19/22 Alcohol intake: current Drinks per week: 2 Alcohol use details: Every other week Substance use: current Substance use type: marijuana Other substance usage details: daily Last use: 02/20/2022 Do You Feel Safe in your Home?: Yes Lack of Transportation: No Lack of Food: Never True Current Housing: I Have Housing Concerned About Future Housing: No Difficulty Paying Gas/Electric Bills: No Difficulty Paying for Meds: No Currently Unemployed: No Education: Associate Degree Living arrangements: with family Occupation/Education: unemployed Gender identity (if verbalized by the patient): Female
[2023-05-26] VITALS (9 sets, daily range): BP systolic 94–113; BP diastolic 62–81; PULSE 71–94; RESP 12–16; TEMP 36.3–37.4; O2SAT 97–100; BMI 19.4
[2023-05-26] MEDS: ACETAMINOPHEN 500 MG TABLET 1000 MG PO ×3 (06:40→22:52)
[2023-05-26] MEDS: KETOROLAC 15 MG/ML VIAL (*BKC) IV PUSH (06:40)
--- NOTE | 2023-05-26 07:13 | WPDHPUPDATE1 ---
History and Physical Update Update Date/Time: 05/26/23 07:13 History and Physical has been reviewed, including an updated exam of the patient. There are NO changes in the patient's condition. Risks, benefits, and alternatives have been discussed and questions answered. Patient agrees to proceed with RA-TLH, BS, cystoscopy.
--- NOTE | 2023-05-26 07:22 | WPDANESEPPF ---
Anes - Initial Pre Proc Eval Procedure: Operation Date: 05/26/23 07:30 Proposed Procedures p Robotic Assisted Total Laparoscopic Hysterectomy with Bilateral Salpingectomy - Divina Armstrong MD Date/Time: 05/26/23 07:22 Surgeon: Divina Armstrong MD Pre Op Diagnosis: abnormal uterine bleeding Patient Data Age: 33 Gender: F Height: 1.73 m Weight: 58.05 kg Allergies Allergy/AdvReac Type Severity Reaction Status Date / Time adhesive Allergy Blister Verified 05/26/23 06:45 Sutures AdvReac Intermediate Other Verified 05/26/23 06:45 Sulfa (Sulfonamide AdvReac Mild Hives Verified 05/26/23 06:45 Antibiotics) Home Medications Medication Instructions Recorded Confirmed Type sumatriptan succinate 50 mg tablet 50 mg PO PRN PRN Migraine Headache 04/21/20 05/26/23 History (Imitrex) topiramate 200 mg tablet (Topamax) 200 mg PO BID 04/21/20 05/26/23 History erenumab-aooe 70 mg/mL See Rx Instructions .Route .COMPLEX 02/21/22 05/26/23 History subcutaneous auto-injector (Aimovig Autoinjector) baclofen 5 mg tablet 5 mg PO PRN 03/24/23 05/26/23 History clonazepam 1 mg tablet 1 mg PO PRN 03/24/23 05/26/23 History levetiracetam 1,000 mg tablet 1,000 mg PO Q12H 03/24/23 05/26/23 History (Keppra) medroxyprogesterone 10 mg tablet 10 mg PO DAILY #14 tabs 05/13/23 05/26/23 Rx (Provera) cholecalciferol (vitamin D3) 10 10 mcg PO DAILY 05/15/23 05/22/23 History mcg (400 unit) tablet (Vitamin D3) fludrocortisone 0.1 mg tablet 0.1 mg PO DAILY 05/15/23 05/26/23 History folic acid 1 mg tablet 2 mg PO DAILY 05/15/23 05/22/23 History midodrine 10 mg tablet 10 mg PO TID 05/15/23 05/26/23 History potassium 99 mg tablet 99 mg PO DAILY 05/15/23 05/26/23 History vitamin B complex (Vitamins B 1 tablet PO DAILY 05/15/23 05/22/23 History Complex tablet) trazodone 100 mg tablet 200 mg PO QHS PRN Sleep #180 tabs 05/21/23 05/26/23 Rx zolpidem 10 mg tablet 10 mg PO DAILY #90 tabs 05/21/23 05/26/23 Rx Patient hx anesthesia problems: none Family hx anesthesia problems: none Results Review: All pre-operative results and documents have been reviewed as part of the pre-operative evaluation. [facility] Past Medical History Medical History Body aches Diarrhea Episodic migraine GERD (gastroesophageal reflux disease) History of PSVT (paroxysmal supraventricular tachycardia) IBS (irritable bowel syndrome) Insomnia Irritable bowel syndrome with constipation Nausea and vomiting Orthostatic hypertension Orthostatic intolerance POTS (postural orthostatic tachycardia syndrome) Seizures SVT (supraventricular tachycardia) Weight loss Surgical History Surgical History H/O abdominoplasty Hx of breast augmentation Hx of total knee replacement reconstruction on both knees Family History Family History Father Heart attack Lung cancer Diabetes mellitus Mother Arthritis, rheumatoid Diabetes mellitus DVT (deep venous thrombosis) Endometriosis Grandparent Cerebrovascular accident Social History Social History Smoking packs per day: 1 Smoking cigarettes per day: 20.0 Years smoked: 18 Smoking pack-years: 18.00 Smoking status: Current every day smoker Tobacco type: cigarettes Smoking end date: 01/19/22 Alcohol intake: current Drinks per week: 2 Alcohol use details: Every other week Substance use: current Substance use type: marijuana Other substance usage details: daily Last use: 02/20/2022 Do You Feel Safe in your Home?: Yes Lack of Transportation: No Lack of Food: Never True Current Housing: I Have Housing Concerned About Future Housing: No Difficulty Paying Gas/Electric Bills: No Difficulty Paying for Meds: No Currently Unemployed: No Educat
[2023-05-26] MEDS: LACTATED RINGERS 1,000 ML 30 ML IV CONT ×2 (07:30→09:09)
[2023-05-26] MEDS: ceFAZolin 2 GM/D5W 50 ML 2 GM/50 ML BAG IVPB (07:30)
[2023-05-26] MEDS: metroNIDAZOLE 500 MG/ISO 100ML 500 MG/100 ML BAG 100 MG IVPB (07:40)
[2023-05-26] MEDS: LIDO 1%/EPINEPHRINE 1:100,000 20 ML VIAL 30 ML INFILTRATE (08:45)
--- NOTE | 2023-05-26 09:01 | W.PM.PROC2 ---
Procedure Note - Detailed Date of Procedure 05/26/23 Pre-op Diagnosis abnormal uterine bleeding chronic pelvic pain fibroid uterus Post-op Diagnosis Same Procedure Performed Robotic assisted total laparoscopic hysterectomy with bilateral salpingectomy with cystoscopy Surgeon Divina Armstrong MD Computer Game Program[employer] Ba Anesthesia General and Local (15cc of 1% lidocaine w/ epio) Findings Uterus sounded to 7cm; cervix 2.5cm. right fallopian tube with paratubal cyst, small amount of endometriosis noted on tubes/anterior uterus, right ovary with normal appearing cyst, left ovary normal. Normal bladder that filled without issues; bilateral ureteral efflux noted. Description of Procedure Dionna was taken to the operating room where she was placed under general anesthesia without issues. She received 2 g Ancef and 500mg Metronidazole. She was then prepped and draped in the usual sterile fashion in the dorsal lithotomy position with her legs in low Yobani stirrups, her arms tucked at her side, with a strap over her chest. A time-out was performed. My attention was turned down below where a bauman catheter was placed. A bivalve speculum was placed within the vagina. The cervix was easily identified and the anterior lip of the cervix was grasped with single-tooth tenaculum. The uterus was then sounded to 7cm. The cervix was serially dilated to allow for the TOÑITO uterine manipulator; which was placed w/o issue (6cm tip with 2.5cm cervical ring). My gloves were changed and attention was then turned to the abdomen. A 5 mm trocar was placed under direct visualization at Miguel's point without issue. Once intra-abdominal placement was confirmed, the abdomen was insufflated with carbon dioxide gas. An abdominal survey was performed and the above findings were noted. Two additional ports were placed on the right and left side and the camera port was placed suprapubically under direct visualization without issues. The 5mm port was switched out for the accessory port under direct visualization. The patient was then placed in deep Trendelenburg, with the legs slightly lowered. The robot was then docked. The instruments were placed intra-abdominally under direct visualization. I then un-scrubbed and went to the robotic console. I then started my hysterectomy on the right side. The ureter was easily identified transperitoneally and well out of the surgical field. The fallopian tube was elevated and the mesosalpinx was coagulated and transected. The round ligament was clamped, coagulated, and transected. The uterine ovarian artery was then serially clamped, coagulated, and transected with good hemostasis. The broad ligament was then dissected anteriorly and posteriorly skeletonizing the uterine artery. The bladder flap was then developed on the right side and carried around the left, anteriorly. The uterine artery was then serially clamped and coagulated. Once the vessel was adequately coagulated, it was then transected with good hemostasis. The same procedure was then performed on the left side without complications. The uterus was noted to be devascularized. The bladder flap was verified out of the surgical field and the colpotomy was started anteriorly and continued in a clockwise fashion until the uterus was released. The uterus was removed from the abdomen via the vagina without complications. The vaginal cuff had small bleeders that were made hemostatic without complications. The vaginal cuff was then reapproximated using a 0 V lock suture. The pelvis was then irrigated and suctioned free of all clots and debris. Good hemostasis was noted. All instruments were removed from the abdomen and the robot was undocked. I then scrubbed back in and verified that the cuff was intact without any defects. The Bauman catheter was then removed. The cystoscope was placed within the bladder, which filled without difficulty. Bilateral ureteral efflux was noted. The bladder was examined and
[2023-05-26] MEDS: fentaNYL CITRATE INJ (*CRX) 100 MCG/2 ML VIAL 25 MCG IV PUSH ×2 (09:55→09:58)
[2023-05-26] MEDS: DEXTROSE 5%/LACTATED RINGERS 1,000 ML 100 ML IV CONT ×2 (11:13→21:01)
[2023-05-26] MEDS: DOCUSATE SODIUM 100 MG CAPSULE PO (11:13)
[2023-05-26] MEDS: KETOROLAC 30 MG/ML VIAL (*BKC) IV PUSH ×3 (11:14→22:51)
--- NOTE | 2023-05-26 12:30 | PC.NURSE ---
This patient, Dionna Casanova, was received from PACU on 05/26/23 at 1017. Patient/family oriented to unit policies and routines
[2023-05-26] MEDS: SIMETHICONE 80 MG TAB.CHEW PO (16:38)
[2023-05-26] MEDS: TOPIRAMATE 100 MG TABLET 200 MG PO ×2 (16:46→21:15)
--- NOTE | 2023-05-26 19:24 | PM.GYNPNOP ---
DATA PROGRAMMER - A/P Assessment and plan (1) S/P laparoscopic hysterectomy: Code(s): Z90.710 - Acquired absence of both cervix and uterus Status: Acute Plan - oxy 5/10 and dilaudid ordered PRN; will give oxycodone 5mg now and verify it works well for her pain as that's been sent in to pharmacy Postoperative Procedures: Procedures Operation Date: 05/26/23 07:30 Actual Procedure Side Surgeon p Robotic Assisted Total Laparoscopic Hysterectomy with Bilateral Salpingectomy, Cystoscopy Bilateral Divina Armstrong MD Postoperative day: 1 Postoperative status: doing well Postoperative plan: routine post-op care and discharge Time Spent With Patient Time: Total time spent is greater than 50% in coordination of care (as documented) at patient's floor/unit and/or counseling patient: Time with patient: less than 15 minutes DATA PROGRAMMER- PN:Subj Post-Op Subjective Date/time seen: 05/27/23 07:24 Interval history: POD#1 Dionna reports doing well today. No issues overnight. She was not given any stronger pain meds overnight; only got Tylenol and Toradol-- pain has been ok but would like something stronger. She has tolerated regular diet. She denies any vaginal bleeding. She has voided. She has passed flatus. She has ambulated and denies any symptoms of anemia. Review of Systems Review of Systems: All systems reviewed & are unremarkable except as noted in HPI and below (HPI) Constitutional: Constitutional: Denies chills, Denies fever(s) and Denies headache(s) Eyes: Eyes: Denies change in vision ENT: Denies dizziness and Denies headache(s) Cardiovascular: Cardiovascular: Denies chest pain and Denies rapid heart rate Respiratory: Respiratory: Denies cough Genitourinary: Genitourinary: Denies abnormal vaginal bleeding Neurologic: Denies dizziness and Denies headache(s) Exam Const: General: cooperative, healthy appearing, comfortable and no acute distress Orientation/consciousness: patient oriented x3 Resp: Effort & Inspection: normal respiratory effort Auscultation: clear to auscultation bilaterally Cardio: Rate: regular rate GI: Inspection: normal to inspection and incision (4 LSC incisions c/d/i) GI Palp: Yes abdominal tenderness (appropriate) and Yes Soft to palpation Auscultation: normal bowel sounds : Other: normal bleeding on pad Skin: General skin exam: normal color Neuro: General: patient oriented x3 Psych: Appearance: grossly normal Affect: normal affect Attitude: cooperative DATA PROGRAMMER - PN: Obj Data Vital Signs Vital Signs: Vital Signs - 24 hr 05/26/23 09:09 05/26/23 09:25 05/26/23 09:40 Temperature 97.7 F Pulse Rate 90 86 87 Respiratory Rate 16 14 14 Blood Pressure 101/62 94/66 L 99/63 L Pulse Oximetry 100 100 100 Oxygen Delivery Simple Face Mask Simple Face Mask Simple Face Mask Oxygen Flow Rate 8 8 8 05/26/23 09:55 05/26/23 10:10 05/26/23 10:20 Temperature 97.3 F L Pulse Rate 94 81 78 Respiratory Rate 14 12 16 Blood Pressure 112/77 113/73 107/72 Pulse Oximetry 97 99 97 Oxygen Delivery Room Air Room Air Oxygen Flow Rate 05/26/23 15:45 Temperature 97.9 F Pulse Rate 79 Respiratory Rate 16 Blood Pressure 96/81 L Pulse Oximetry 99 Oxygen Delivery Oxygen Flow Rate Intake/Output Intake/Output: Intake & Output 05/23/23 05/24/23 05/25/23 05/26/23 23:59 23:59 23:59 23:59 Intake Total 1740 Output Total 200 Balance 1540 Meds/Results Medications: Active Medications Generic Name Dose Route Start Last Admin Trade Name Freq PRN Reason Stop Dose Admin Acetaminophen 1,000 mg 05/26/23 12:00 05/26/23 16:46 Acetaminophen 500 Mg Tablet PO 1,000 mg Q6H JOSY Administration Baclofen 5 mg 05/26/23 11:25 Baclofen 5 Mg Tablet PO Q12H PRN Spasms Clonazepam 1 mg 05/26/23 11:25 Clonazepam (*Crx) 0.5 Mg Tablet PO Q8HR PRN Anxiety Docusate Sodium 100 mg 05/26/23 10:15 05/26/23 11:13 Docusate Sodium 10
[2023-05-26] MEDS: levETIRAcetam 500 MG TABLET 1000 MG PO (21:15)
[2023-05-26] MEDS: ZOLPIDEM TARTRATE (*CRX) 5 MG TABLET 10 MG PO (21:15)
[2023-05-27 03:30] VITALS: BP 97/61; PULSE 78; RESP 16; TEMP 37.1; O2SAT 99
[2023-05-27 04:58] LABS: Anion Gap 4 mmol/L (4-12); Blood Urea Nitrogen 10 mg/dL (7-17); Calcium 8.5 mg/dL (8.4-10.2); Carbon Dioxide 20 mmol/L (22-30); Chloride 115 mmol/L (98-107); Estimated CRCL calculation 64 ml/min; Estimated Glomerular Filt Rate > 60; Glucose 95 mg/dL (65-110); Potassium 3.4 mmol/L (3.4-5.0); Sodium 139 mmol/L (137-145)
[2023-05-27] MEDS: IBUPROFEN 600 MG TABLET PO (05:18)
[2023-05-27] MEDS: ACETAMINOPHEN 500 MG TABLET 1000 MG PO (05:18)
[2023-05-27 05:20] LABS: Basophils Percent Auto 0.5 % (0.2-1.2); Eosinophils Absolute Auto 0.1 K/mm3 (0-0.3); Eosinophils Percent Auto 1.6 % (0-4.4); Hematocrit 34.3 % (37.0-47.0); Hemoglobin 11.2 g/dL (12.0-15.0); Immature Granulocyte Absolute 0.02 K/mm3 (0.00-0.031); Immature Granulocyte Percent A 0.2 % (0-0.5); Lymphocytes Absolute Auto 2.09 K/mm3 (0.9-3.2); Lymphocytes Percent Auto 25.8 % (18.3-44.2); Mean Corpuscular HGB Conc 32.7 g/dl (32-36); Mean Platelet Volume 9.1 fl (7.4-10.4); Monocytes Absolute Auto 0.7 K/mm3 (0.1-0.6); Monocytes Percent Auto 9.1 % (2.6-8.5); Neutrophils Absolute Auto 5.1 K/mm3 (1.3-6.7); Neutrophils Percent Auto 62.8 % (45.5-73.1); Platelet Count Result 257 k/mm3 (150-375); Red Cell Distribution Width 13.2 % (11.5-14.5); White Blood Count 8.1 K/mm3 (4.5-10.0)
[2023-05-27] MEDS: MIDODRINE HCL 10 MG TABLET PO (07:41)
[2023-05-27] MEDS: FLUDROCORTISONE ACETATE 0.1 MG TABLET PO (07:41)
[2023-05-27] MEDS: DOCUSATE SODIUM 100 MG CAPSULE PO (07:41)
[2023-05-27] MEDS: SIMETHICONE 80 MG TAB.CHEW PO (07:41)
[2023-05-27] MEDS: TOPIRAMATE 100 MG TABLET 200 MG PO (07:42)
[2023-05-27] MEDS: FOLIC ACID 1 MG TABLET 2 MG PO (07:42)
[2023-05-27] MEDS: oxyCODONE HCL (*CRX) 5 MG TAB IR PO ×2 (07:43→09:21)
[2023-05-27] MEDS: VITAMIN B COMPLEX CAPSULE 1 CAP PO (07:43)
[2023-05-27] MEDS: levETIRAcetam 500 MG TABLET 1000 MG PO (07:50)
[2023-05-27 07:55] VITALS: BP 114/70; PULSE 64; RESP 18; TEMP 36.6; O2SAT 100
== END 2023-05-27 09:30 | disposition home or self-care (01) ==
LOC: ANHSURGERY 05:59 → ANHOB2 10:17
PROVIDERS: PCP Nurse Practitioner Family; Visit Provider Obstetrics & Gynecology
PROC: (CPT 58571; principal; 2023-05-26 07:30)
DX: D25.1 Intramural leiomyoma of uterus (principal); N83.201 Unspecified ovarian cyst, right side; N93.9 Abnormal uterine and vaginal bleeding, unspecified; G90.A Postural orthostatic tachycardia syndrome [POTS]; G40.909 Epilepsy, unspecified, not intractable, without status epilepticus; F17.210 Nicotine dependence, cigarettes, uncomplicated; F12.90 Cannabis use, unspecified, uncomplicated
CPT/HCPCS: 58571; S2900; 36415; 80048; 85025; 88307; 99199; A9270; J0690; J1100; J1170; J1836; J1885; J2250; J2405; J2704; J3010; J7030; J7120; J7121